=== PATIENT | male | born 1995 | race Two or more races ===

== ENCOUNTER 2017-07-07 17:52 | Emergency (ER) | payer SELFPAY ==
[2017-07-07 18:01] VITALS: BP 120/61
[2017-07-07] MEDS ORDERED: ACETAMINOPHEN 325 MG TABLET PO ONE (18:22)
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
--- NOTE | 2017-07-07 19:03 | ER Document Report ---
HPI - HPI Patient complains to provider of: inury right foot Onset: Other - Onset/Duration: Sudden Pain Level: 4 Context: 22 yo male twisted right foot [place] on . Has been walking. Associated Symptoms: None Exacerbated by: Walking Relieved by: Denies - ROS ROS below otherwise negative: Yes Systems Reviewed and Negative: Yes All other systems reviewed and negative - MUSCULOSKELETAL Musculoskeletal: REPORTS: Extremity pain - right foot Past Medical History - General Information source: Patient - Social History Smoking Status: Current Some Day Smoker Frequency of alcohol use: None Drug Abuse: None Family History: Reviewed & Not Pertinent Patient has suicidal ideation: No Patient has homicidal ideation: No Renal/ Medical History: Denies: Hx Peritoneal Dialysis Psychiatric Medical History: Reports: Hx Attention Deficit Hyperactivity Disorder - Immunizations Immunizations up to date: Yes Hx Diphtheria, Pertussis, Tetanus Vaccination: Yes Vertical Provider Document - CONSTITUTIONAL Agree With Documented VS: Yes Exam Limitations: No Limitations General Appearance: No Apparent Distress - HEENT HEENT: Normocephalic - NECK Neck: Supple - MUSCULOSKELETAL/EXTREMETIES Musculoskeletal/Extremeties: MAEW, Tender, Edema - dorsal right foot over MT and proxima toes, Eccymosis - NEURO Level of Consciousness: Awake Motor/Sensory: No Motor Deficit, No Sensory Deficit Course - Re-evaluation Re-evalutation: 07/07/17 19:03 xray is negative per rad. pt was relieved and didn't think it was broken - Vital Signs Vital signs: Temp Pulse Resp BP Pulse Ox 98.8 F 74 16 120/61 98 07/07/17 17:59 07/07/17 17:59 07/07/17 17:59 07/07/17 17:59 07/07/17 17:59 Procedures - Immobilization Right Foot Time completed: 19:09 Pre-Proc Neuro Vasc Exam: Normal Immobilizer type: Ridge wrap Performed by: PCT Post-Proc Neuro Vasc Exam: Normal Alignment checked and good: Yes Discharge - Discharge Clinical Impression: Right foot sprain Qualifiers: Encounter type: initial encounter Qualified Code(s): S93.601A - Unspecified sprain of right foot, initial encounter Condition: Good Disposition: HOME, SELF-CARE Instructions: Sprain ([facility]), Ridge Wrap ([facility]), Exercises for the Foot Muscles ([facility] ), Use of Crutches ([facility]) Additional Instructions: ridge wrap for comfort crutches few days see orthopedic doctor if persists tylenol motrin Prescriptions: Ibuprofen [Motrin 800 mg Tablet] 800 mg PO Q8HP PRN #30 tablet PRN Reason: Forms: Return to Work Referrals: MYRANDA BELTRAN MD [ACTIVE STAFF] - Follow up as needed
== END 2017-07-07 19:20 | disposition home or self-care (01) ==
LOC: ER 17:52
DX: S99.921A Unspecified injury of right foot, initial encounter (principal); M79.671 Pain in right foot; R60.0 Localized edema; X50.1XXA Overexertion from prolonged static or awkward postures, initial encounter; Y93.9 Activity, unspecified; Y92.832 Beach as the place of occurrence of the external cause; F17.200 Nicotine dependence, unspecified, uncomplicated
CPT/HCPCS: 99283

== ENCOUNTER 2018-04-28 14:02 | Emergency (ER) | payer SELFPAY ==
[2018-04-28 14:12] VITALS: BP 114/60
--- NOTE | 2018-04-28 15:11 | ER Document Report ---
ED General - General Chief Complaint: Diarrhea Stated Complaint: DIARRHEA,NAUSEA,HEADACHE Time Seen by Provider: 04/28/18 14:55 Primary Care Provider: KAREN APPIAH MD [ACTIVE STAFF] - Follow up in 3-5 days (or your primary care. ) Notes: Patient is a 23-year-old male previously healthy that presents to the emergency department for chief complaint of nausea and diarrhea. Patient reports that over the past 5 days she has had watery diarrhea and nausea with dry heaving. He had associated abdominal cramping which she rates as a 3 out of 10 describes as a aching sensation, and worse at times, currently its not that bad. His mother had some nausea, but did not have any diarrhea. He also states he has had some migraine headaches associated with this as well, but no headache at this time, he has been taking some Tylenol, with some relief of his symptoms but he decided come in because is been lasting this long, and he is been missing some work. Denies any fevers, chills, chest pain, shortness of breath, difficulty breathing, dysuria or hematuria. Past Medical History: Denies chronic medical conditions Past Surgical History: Denies surgical history Social History: Denies tobacco use, admits to occasional alcohol use, denies illicit drug use. Family History: Reviewed and noncontributory for presenting illness Allergies: Reviewed, see documented allergy list. REVIEW OF SYSTEMS: Other than noted above, the 12 point review of systems was reviewed with the patient and were negative, all pertinent findings are included in the HPI. PHYSICAL EXAMINATION: Vital signs reviewed, nursing noted reviewed. GENERAL: Well-appearing, well-nourished and in no acute distress. HEAD: Atraumatic, normocephalic. EYES: Eyes appear normal, sclera anicteric, conjunctiva are normal. ENT: Moist mucous membranes. NECK: Normal range of motion, supple without lymphadenopathy LUNGS: Breath sounds clear to auscultation bilaterally and equal. No wheezes rales or rhonchi. HEART: Regular rate and rhythm without murmurs Abdomen: Mild abdominal tenderness with palpation, diffuse, nonfocal, abdomen is nonrigid, bowel sounds present, no rebound, guarding or distention. EXTREMITIES: Nontender, good range of motion, no pitting or edema. NEUROLOGICAL: No focal neurological deficits. Moves all extremities spontaneously Motor and sensory grossly intact on exam. PSYCH: Normal mood, normal affect. SKIN: Warm, Dry, normal turgor, no rashes or lesions noted on exposed skin TRAVEL OUTSIDE OF THE [place] IN LAST 30 DAYS: No - Related Data Allergies/Adverse Reactions: No Known Allergies Allergy (Verified 04/28/18 15:00) Past Medical History - Social History Smoking Status: Current Every Day Smoker Chew tobacco use (# tins/day): No Frequency of alcohol use: Occasional Drug Abuse: None Family History: Reviewed & Not Pertinent Patient has suicidal ideation: No Patient has homicidal ideation: No Renal/ Medical History: Denies: Hx Peritoneal Dialysis Psychiatric Medical History: Reports: Hx Attention Deficit Hyperactivity Disorder - Immunizations Immunizations up to date: Yes Hx Diphtheria, Pertussis, Tetanus Vaccination: Yes Physical Exam - Vital signs Vitals: Temp Pulse Resp BP Pulse Ox 98.1 F 61 16 114/60 96 04/28/18 14:11 04/28/18 14:11 04/28/18 14:11 04/28/18 14:11 04/28/18 14:11 Course - Re-evaluation Re-evalutation: Patient seen and examined vital signs reviewed. Patient was evaluated and treated as appropriate for the patient's presenting symptoms and complaint, with consideration of any critical or life threatening conditions that may be associated with their obtained history and exam as noted above. The patient was re-evaluated and was stable Evaluation was most consistent with diarrhea, nonspecific, patient be discharged home with a prescription for Zofran and Bentyl, agreeable to this plan of care, advised oral hydration, and to return if he felt that he was getting dehydrated, or blood in his stool. Plan of care was discussed with the patient at this point, after careful consideration I feel that that patient can be discharged from the emergency department, the patient was educated treatments and reasons to return to the emergency department based on their presumed diagnosis as noted above, they were advised to followup with a primary care physician in 2-3 days. Patient was agreeable to plan of care. *Note is created using voice recognition software and may contain spelling, syntax or grammatical errors. - Vital Signs Vital signs: Temp Pulse Resp BP Pulse Ox 98.1 F 61 16 114/60 96 04/28/18 14:11 04/28/18 14:11 04/28/18 14:11 04/28/18 14:11 04/28/18 14:11 Discharge - Discharge Clinical Impression: Diarrhea Condition: Stable Disposition: HOME, SELF-CARE Instructions: Diarrhea, Nonspecific ([facility]) Additional Instructions: Please take all prescribed medications as directed, if symptoms should start to improve over the next 24-48 hours, if you feel you are getting dehydrated not able to keep up with liquids at home, you should return to the emergency department to be reevaluated. Prescriptions: Dicyclomine HCl [Bentyl 20 mg Tablet] 20 mg PO QID PRN #30 tablet PRN Reason: Abdominal Cramping Ondansetron [Zofran Odt 4 mg Tablet] 1 tab PO Q8H PRN #15 tab.rapdis PRN Reason: For Nausea/Vomiting Forms: Return to Work Referrals: KAREN APPIAH MD [ACTIVE STAFF] - Follow up in 3-5 days (or your primary care. )
== END 2018-04-28 15:21 | disposition home or self-care (01) ==
LOC: ER 14:02
DX: R19.7 Diarrhea, unspecified (principal); R11.0 Nausea; R10.9 Unspecified abdominal pain; R10.817 Generalized abdominal tenderness; F17.200 Nicotine dependence, unspecified, uncomplicated
CPT/HCPCS: 99284

== ENCOUNTER 2019-05-14 13:23 | Emergency (ER) | payer OTHER ==
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
[2019-05-14] MEDS ORDERED: NORMAL SALINE 1000 ML 1,000 ML IV ONE (13:34)
[2019-05-14 14:06] LABS: ABSOLUTE EOSINOPHILS # (AUTO) 0.1 10^3/uL (0.0-0.6); ABSOLUTE LYMPHOCYTES (AUTO) 1.8 10^3/uL (0.5-4.7); ABSOLUTE MONOCYTES (AUTO) 0.4 10^3/uL (0.1-1.4); ABSOLUTE NEUT (AUTO) 3.6 10^3/uL (1.7-8.2); BASOPHILS % (AUTO) 0.6 % (0-2); EOSINOPHILS % (AUTO) 1.3 % (0-6); HEMATOCRIT 42.6 % (37.9-51.0); HEMOGLOBIN 15.2 g/dL (13.5-17.0); MEAN CORPUSCULAR HGB CONC 35.6 g/dL (32.0-36.0); MEAN CORPUSCULAR VOLUME 90 fl (80-97); MONOCYTES % (AUTO) 6.7 % (3-13); PLATELET COUNT 231 10^3/uL (150-450); RED BLOOD COUNT 4.74 10^6/uL (4.35-5.55); SEGMENTED NEUTROPHILS % (AUTO) 60.4 % (42-78); TOTAL CELLS COUNTED % (AUTO) 100 %
[2019-05-14 14:27] LABS: ALKALINE PHOSPHATASE 69 U/L (38-126); ANION GAP 10 (5-19); ASPARTATE AMINO TRANSFERASE 27 U/L (17-59); BILIRUBIN,DIRECT 0.1 mg/dL (0.0-0.4); BILIRUBIN,TOTAL 0.8 mg/dL (0.2-1.3); BLOOD UREA NITROGEN 10 mg/dL (7-20); CALCIUM 9.8 mg/dL (8.4-10.2); CARBON DIOXIDE 23 mmol/L (22-30); CHLORIDE 108 mmol/L (98-107); CREATINE KINASE 149 U/L (55-170); GLUCOSE 97 mg/dL (75-110); POTASSIUM 4.2 mmol/L (3.6-5.0); TOTAL PROTEIN 7.9 g/dL (6.3-8.2)
[2019-05-14 14:38] LABS: CREATINE KINASE MB 0.94 ng/mL (<4.55)
[2019-05-14 14:39] LABS: TROPONIN I < 0.012 ng/mL
--- NOTE | 2019-05-14 17:22 | EKG REPORT ---
SEVERITY:- NORMAL ECG - SINUS RHYTHM : Confirmed by: Jose Carpio 14-May-2019 17:21:52
[2019-05-14 17:36] LABS: APPEARANCE,URINE CLEAR; BILIRUBIN,URINE NEGATIVE (NEGATIVE); COLOR,URINE YELLOW; GLUCOSE, URINE NEGATIVE (NEGATIVE); KETONES,URINE 20 mg/dL (NEGATIVE); LEUKOCYTE ESTERASE,URINE NEGATIVE (NEGATIVE); NITRITE,URINE NEGATIVE (NEGATIVE); PROTEIN,URINE NEGATIVE (NEGATIVE); URINE SPECIFIC GRAVITY 1.014
[2019-05-14 17:42] LABS: ADD MANUAL MICROSCOPIC YES
[2019-05-14 17:55] LABS: URINE AMPHETAMINES SCREEN NEGATIVE; URINE BARBITURATES SCREEN NEGATIVE; URINE BENZODIAZEPINES SCREEN NEGATIVE; URINE COCAINE SCREEN NEGATIVE; URINE METHADONE SCREEN NEGATIVE; URINE PHENCYCLIDINE SCREEN NEGATIVE
[2019-05-14 17:57] LABS: URINE MARIJUANA (THC) SCREEN UNCONFIRMED POSITIVE
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
== END 2019-05-14 19:16 | disposition home or self-care (01) ==
LOC: ER 13:23
DX: F43.9 Reaction to severe stress, unspecified (principal); R53.1 Weakness; F17.200 Nicotine dependence, unspecified, uncomplicated
CPT/HCPCS: 93005; 99283; 96360; 96361; 36415; 82553; 82550; 85025; 80053; 81001; 84484; 80307; 93010; J7030